=== PATIENT | male | born 1995 | race Caucasian/White ===

== ENCOUNTER 2018-12-28 18:33 | Emergency (ER) | payer BC, SELFPAY ==
[2018-12-28 18:34] VITALS: BP 143/78; PULSE 77; RESP 16; TEMP 36.8; O2SAT 96; BMI 36.1
--- NOTE | 2018-12-28 18:55 | RAD_ITS ---
STUDY: X-RAY - RIGHT HAND, ATTENTION THIRD FINGER REASON FOR EXAM: Male, 23 years old. Trauma TECHNIQUE: 3 view(s) of the finger were obtained. COMPARISON: None. FINDINGS: Normal metacarpal head. Normal metacarpophalangeal joint. Normal proximal phalanx. Normal middle phalanx. Transverse fracture through the distal phalangeal tuft of the third digit with mild separation of fracture fragments Normal proximal interphalangeal joint. Normal distal interphalangeal joint. RAD/Finger(s) Min 2 Views IMPRESSION: Mildly displaced fracture through the distal phalanx of the third digit Electronically Signed: Nino De La Cruz MD at 19:09 EDT , Service support ,
--- NOTE | 2018-12-28 20:35 | ED.VISSUMM ---
- ER Visit Summary Date of Service: 12/28/18 Chief Complaint: Right long finger injury History of Present Illness: The patient is a 23 M who presents with an injury to his right long finger that occurred yesterday. Patient states he smashed in a car door. Patient states the pain is worse with any movement. Patient does admit to some tingling in the tip of his finger. Patient describes his pain as throbbing. Patient states pain is improving over the past 24 hours. Patient is unsure of his last tetanus but thinks it was approximately 10 years ago. Physical Examination: Vital signs are stable. Patient is afebrile. Patient is in no acute distress. Musculoskeletal exam reveals laceration over the volar aspect of the distal phalanx of the right long finger. There is also a subungual hematoma on the right long finger that is less than 50% of the nailbed. There is tenderness to palpation over the distal phalanx of the right long finger. Range of motion was slightly limited in flexion of the DIP joint of the right long finger. Sensation was intact to light touch in all digits. Capillary refill is less than 2 seconds in all digits. Test Results: X-rays of the right middle finger were obtained. There is a transverse fracture through the distal phalanx that is minimally displaced. Emergency Department Course and Treatment: Patient was given a tetanus booster. Patient was given a dose of Keflex here. Bacitracin gauze dressing was applied. AlumaFoam splint was applied. Patient was given a prescription for Keflex. Patient was instructed to ice and elevate the right middle finger. Patient was instructed to follow-up with his primary care physician in 5 to 7 days. Patient understood and was agreeable with the plan. All questions were answered. Disposition: Discharge home Impression: 1. Open fracture distal phalanx right long finger This note was generated with [employer] dictation software. It may contain incorrect words, spelling, and punctuation that were not noted in review of the chart prior to signing ED Disposition - Plan for ED Patient: Disposition: Home or Assisted Living Diagnosis: Open fracture of distal phalanx of digit of right hand Instructions: FRACTURE, Finger (Open) Prescriptions: Cephalexin [Keflex] 500 mg PO Q6 #40 cap Prescription Printed Referrals: Aime Conte III, MD [Primary Care Provider] - 5-7 Days
[2018-12-28] MEDS: Cephalexin 500 MG Capsule PO (20:50)
[2018-12-28] MEDS: Diphth,Pertuss(Acell),Tet Vac 0.5 ML Vial IM (20:50)
[2018-12-28] MEDS: BACITRACIN 15 GM Tube 1 APPLIC TOPICAL (20:50)
[2018-12-28 21:08] VITALS: BP 136/70; PULSE 72; RESP 16; O2SAT 100
== END 2018-12-28 21:09 | disposition home or self-care (01) ==
PROVIDERS: Emergency Provider Emergency Medicine; Family Provider Family Medicine; PCP Family Medicine
DX: S62.632B Displaced fracture of distal phalanx of right middle finger, initial encounter for open fracture (principal); W23.0XXA Caught, crushed, jammed, or pinched between moving objects, initial encounter
CPT/HCPCS: 73140; 90471; 90715; 99284

== ENCOUNTER 2021-04-07 19:19 | Emergency (ER) | payer OTHER, SELFPAY ==
[2021-04-07 19:20] VITALS: BP 143/76; PULSE 117; RESP 22; TEMP 37.8; O2SAT 93; BMI 35.2
--- NOTE | 2021-04-07 19:26 | RAD_ITS ---
STUDY: X-RAY CHEST REASON FOR EXAM: Male, 26 years old. SOB -- COVID + shortness of breath since Monday TECHNIQUE: Frontal portable view of the chest COMPARISON: None. FINDINGS: There is ill-defined interstitial moderate extent right lower lung opacity with smaller left lower lobe opacity. Pulmonary volumes are low. There is no pneumothorax, pulmonary edema or cardiac megaly. RAD/Chest 1 View IMPRESSION: Bilateral viral pneumonia. Electronically Signed: Yair Zelaya MD at 20:13 EST Tel , Service support ,
[2021-04-07 22:04] VITALS: O2SAT 96
--- NOTE | 2021-04-07 22:15 | EDS_ITS ---
HPI HPI - URI History of Present Illness Chief Complaint: Shortness of Breath Narrative Narrative: 26-year-old male on day 7 of Covid symptoms. Patient still having fever, chills, body aches. He has not been monitoring his pulse ox because he does not know how. Patient does describe a cough as well and when he coughs it is painful. Patient is taking Tylenol for his fevers. Patient states he has a la in his leg. He developed a DVT postoperatively in the past. He has never had a PE. Patient is not on oral anticoagulation currently. ROS ROS ED Constitutional Constitutional ED: Reports chills and fever(s) Eyes Eyes: Denies blurry vision or diplopia ENT ENT ED: Reports rhinorrhea Cardiovascular Cardiovascular: Reports chest pain; Denies palpitations or racing heartbeat Respiratory/Chest Respiratory/Chest: Reports cough and dyspnea; Denies sputum Gastrointestinal Gastrointestinal: Denies abdominal pain, nausea or vomiting Genitourinary Genitourinary ED: Denies dysuria or hematuria Musculoskeletal Musculoskeletal: Reports myalgias Integumentary Denies abscess or rash Neurologic Neurologic: Reports headache(s); Denies paresthesias or weakness Psychiatric Psychiatric: Denies anxiety or depression PFSH PFSH Medical History no medical history Home Medications cephalexin 500 mg PO Q6 #40 cap 12/28/18 [Rx Last Taken Unknown] albuterol sulfate [Ventolin HFA] 2 puff INHALATION Q6H #8.5 g 04/07/21 [Rx Last Taken Unknown] ondansetron 4 mg PO Q8H PRN PRN #20 tab 04/07/21 [Rx Last Taken Unknown] Allergy/AdvReac Type Severity Reaction Status Date / Time acetaminophen [From Vicodin] Allergy Other Verified 04/07/21 19:19 hydrocodone [From Vicodin] Allergy Other Verified 04/07/21 19:19 propoxyphene Allergy Other Verified 04/07/21 19:19 [From Darvocet-N] Surgical History no surgical history Social History Smoking Status: Never smoker EXAM Physical Exam Const Vital Signs: 04/07/21 19:20 04/07/21 22:04 04/07/21 22:47 Temperature 100.1 F H Temperature Source Temporal Pulse Rate 117 H Respiratory Rate 22 H Respiratory Effort Short of Breath Respiratory Depth Normal Respiratory Pattern Tachypnea Blood Pressure 143/76 H Blood Pressure Mean 98 Pulse Ox 93 95 Oxygen Delivery Method Room Air Room Air Room Air 04/08/21 00:04 Temperature Temperature Source Pulse Rate 62 Respiratory Rate 15 Respiratory Effort Respiratory Depth Respiratory Pattern Blood Pressure 124/77 H Blood Pressure Mean Pulse Ox 95 Oxygen Delivery Method Positive well nourished General Appearance ED: NAD; Negative for pallor HEENT Reports moist mucous membranes normocephalic Eyes PERRL and EOMs intact bilaterally Neck supple and no meningeal signs Resp normal respiratory effort and clear to auscultation bilaterally Auscultation: rales bilateral Cardio Rate: tachycardic Rhythm: regular rhythm GI non-tender and non-distended Palpation: soft Neuro oriented x3, CN's II-XII intact bilaterally and no sensory deficits noted Sensorium / Orientation: alert Motor Exam: strength 5/5 throughout Psych mental status grossly normal Skin General Skin Exam: Negative for jaundice or pallor MDM MDM MDM Narrative Medical decision making narrative: Patient presenting on day 7 of Covid symptoms. He is febrile. He is given Tylenol, morphine, Zofran. Given his symptoms I did check blood work as he is having some chest discomfort. This appears to be more of coughing discomfort more than cardiac related chest pain or PE. I did obtain a CBC which shows leukopenia and lymphopenia. Hemoglobin medic are stable. Creatinine is slightly elevated 1.34. Electrolytes are normal. AST is slightly elevated at 95 otherwise LFTs are normal. Troponin is 15. I did retest him for COVID-19 as he had done home test and I wanted to try to get him follow-up for monoclonal antibodies. EKG on my interpretation shows a sinus rhythm at 88 bpm without signs of ischemic change. Chest x-ray on my interpretation shows bilateral pulmonary infiltrates. Radiologist does agree. CTA of the chest does not identify any pulmonary emboli but does show bilateral groundglass infiltrates. This would be consistent with diagnosis of COVID-19. Reviewed vital signs patient's blood pressure is 124/77 pulse 62, respirate 15, pulse ox 95% on room air. I feel patient is stable for discharge home. He is given Zofran for any nausea. He is counseled to drink plenty of fluids. He will follow-up for monoclonal antibodies. Is given return precautions for the ER. Impression: 1. COVID-19 pneumonitis Lab Data Attestation: I reviewed the patient's lab results. Labs: Laboratory Results - last 24 hr 04/07/21 04/07/21 04/07/21 22:29 22:34 22:34 WBC 3.9 L RBC 5.10 Hgb 15.3 Hct 43.1 MCV 84.5 MCH 30.0 MCHC 35.5 RDW Std Deviation 39.3 RDW Coeff of Yasmeen 12.7 Plt Count 140 L MPV 12.2 H Immature Gran % (Auto) 0.800 Neut % (Auto) 71.3 H Lymph % (Auto) 21.1 [place] % (Auto) 6.2 Eos % (Auto) 0.3 Baso % (Auto) 0.3 Absolute Neuts (auto) 2.8 Absolute Lymphs (auto) 0.82 L Nucleated RBC % 0 Sodium 135 L Potassium 3.6 Chloride 105 Carbon Dioxide 22.0 Anion Gap 8 BUN 18 Creatinine 1.34 H Estim Creat Clear Calc 90.08 Est GFR (MDRD) Af Amer 82 Est GFR (MDRD) Non-Af 67 BUN/Creatinine Ratio 13.4 Glucose 80 Calcium 8.2 L Total Bilirubin 0.60 AST 95 H ALT 52 Alkaline Phosphatase 85 Troponin I High Sens 15 Total Protein 7.5 Albumin 3.5 Globulin 4.0 Albumin/Globulin Ratio 0.9 COVID-19 (JAROCHO) Positive Radiography Diagnostic Testing: Clinical Impression(s) from Imaging Studies Chest X-Ray 04/07/21 19:26 IMPRESSION: Bilateral viral pneumonia. Electronically Signed: Yair Zelaya MD at 20:13 EST Tel , Service support , Chest CTA 04/07/21 22:23 IMPRESSION: 1. No pulmonary emboli. 2. No aortic dissection or aneurysm. 3. Groundglass infiltrates in the posterior lung bases. Question COVID pneumonia. 4. Hepatic steatosis. 5. Question splenomegaly. Electronically Signed: Nawaf Hill DO at 23:38 EST Tel [phone], Service support , Discharge Plan Triage Chief Complaint: Shortness of Breath ED Provider: Rajinder Al Dx/Rx/DC Orders Instructions: Coronavirus Disease 2019 (COVID-19): Caring for Yourself or Others Prescriptions: New ondansetron 4 mg tablet,disintegrating 4 mg PO Q8H PRN PRN (Reason: Nausea) Qty: 20 RF: 0 albuterol sulfate [Ventolin HFA] 90 mcg/actuation HFA aerosol inhaler 2 puff inhalation Q6H Qty: 8.5 RF: 0 No Action cephalexin 500 MG capsule 500 mg PO Q6 Qty: 40 RF: 0 Other Ambulatory Orders: COVID Outpatient Monoclonal Antibody Referral (Routine) Timeframe: 1 Day Facility: [facility] - Location: [facility] Ordered By: Dr. Rajinder Al Primary Care Provider: Care Physician,No Primary Referrals: Lavelle Ross MD [STAFF PHYSICIAN] - As soon as possible Care Physician,No Primary [Primary Care Provider] - Disposition Disposition: Home, Self Care Discharge Date/Time: 04/08/21 00:08
--- NOTE | 2021-04-07 22:22 | EKG12_ITS ---
Test Reason : SOB Blood Pressure : / mmHG Vent. Rate : 088 BPM Atrial Rate : 088 BPM P-R Int : 152 ms QRS Dur : 084 ms QT Int : 360 ms P-R-T Axes : 003 009 009 degrees QTc Int : 435 ms Normal sinus rhythm Normal ECG Confirmed by ARLETTE BURCIAGA, DREW ([id number]), makeup editor MARGIE SANDOVAL ([id number]) on 04/09/2021 9:29:32 A M Referred By: BENEDICTO Confirmed By:JARRED CHONG MD
--- NOTE | 2021-04-07 22:23 | CT_ITS ---
STUDY: CTA CHEST REASON FOR EXAM: Male, 26 years old. Chest pain. Code GRACE x7 days. Cough fever chills and body aches. RADIATION DOSAGE (If Supplied By Facility): CTDIvol = ( 13.85 ) mGy, DLP = ( 568.35 ) mGycm TECHNIQUE: The examination was performed with the intravenous administration of IV 100mL Isovue-370. Post-processing of the angiographic images was performed, with multiplanar reformation and 3D reconstruction. Individualized dose optimization techniques were used for this CT. COMPARISON: Chest, 04/07/2021. FINDINGS: Normal enhancement of the main pulmonary artery and right and left pulmonary arteries. Normal enhancement of the bilateral peripheral pulmonary arteries. There is no demonstrated pulmonary embolism. Normal thoracic aorta and visualized great vessels. There is no demonstrated aortic dissection. Normal heart and pericardium. Normal mediastinum. Normal hilar regions. Normal visualized trachea and bronchi. The lungs are well expanded. There is patchy ground glass infiltrates posteriorly at both lung bases. The lungs are otherwise clear. Normal pleura. Normal chest wall structures. Normal osseous structures. Fatty infiltration of the liver. Mild splenomegaly is suspected. CT/CTA Chest W/WO Contrast IMPRESSION: 1. No pulmonary emboli. 2. No aortic dissection or aneurysm. 3. Groundglass infiltrates in the posterior lung bases. Question COVID pneumonia. 4. Hepatic steatosis. 5. Question splenomegaly. Electronically Signed: Nawaf Hill DO at 23:38 EST Tel [phone], Service support ,
[2021-04-07 22:47] VITALS: O2SAT 95
[2021-04-07] MEDS: Ketorolac 15 MG/ML Vial IV (22:48)
[2021-04-07] MEDS: Morphine 4 MG/ML Syringe IV (22:48)
[2021-04-07] MEDS: Ondansetron 4 MG/2 ML Vial IV (22:48)
[2021-04-07 23:04] LABS: Absolute Lymphocyte Count 0.82 X10^3/uL (0.83-4.51); Absolute Neutrophil Count 2.8 X10^3/uL (2.0-7.7); Basophil# 0.01 X10^3/uL; Basophil% 0.3 % (0-1); Eosinophil# 0.01 X10^3/uL; Eosinophils% 0.3 % (0-5); Hematocrit 43.1 % (40-54); Hemoglobin 15.3 g/dL (13.0-16.5); Lymphocyte # 0.82 X10^3/ul (0.83-4.51); Lymphocyte % 21.1 % (19-41); Mean Corp Hgb Conc 35.5 g/dL (32-36); Mean Corpuscular Volume 84.5 fL (80-94); Mean Platelet Vol. 12.2 fl (6.2-12.0); Monocyte# 0.24 X10^3/uL; Monocyte% 6.2 % (0-10); NRBC Flagged by Analyzer 0 % (0-5); Neutrophil # 2.78 X10^3/uL (2.7-7.7); Neutrophil % 71.3 % (47-70); Platelet Count 140 K/mm3 (150-450); RBC Distribution Width CV 12.7 % (11.6-14.6); RBC Distribution Width SD 39.3 fl (35.1-43.9); White Blood Count 3.9 K/mm3 (4.4-11.0)
[2021-04-07 23:14] LABS: ALB/GLOB Ratio 0.9 RATIO (0.9-2.4); AST(SGOT) 95 U/L (15-37); Alanine Aminotransfer ALT/SGPT 52 U/L (16-61); Albumin, Serum 3.5 g/dL (3.2-5.0); Alkaline Phosphatase 85 U/L (45-117); Anion Gap 8 (5-15); BUN 18 mg/dL (7-18); BUN/Creat Ratio 13.4 RATIO (10-20); Calcium,Total 8.2 mg/dL (8.5-10.1); Chloride 105 mmol/L (98-107); Creatinine, Serum 1.34 mg/dL (0.70-1.30); EST Glomerular Filtration Rate 67 mL/min (>60); Est Glom Filt Rate - Afr Amer 82 mL/min (>60); Estimated Creatinine Clearance 90.08 ml/min; Glucose 80 mg/dL (74-106); Potassium 3.6 mmol/L (3.5-5.1); Protein, Total 7.5 g/dL (6.4-8.2); Sodium Level 135 mmol/L (136-145); Troponin-I HS 15 pg/mL (3.0-78.0)
[2021-04-07 23:46] LABS: Probe Check PASS; Specimen Processing Control PASS
[2021-04-08 00:04] VITALS: BP 124/77; PULSE 62; RESP 15; O2SAT 95
== END 2021-04-08 00:08 | disposition home or self-care (01) ==
PROVIDERS: Emergency Provider Student in an Organized Health Care Education/Training Program
DX: U07.1 COVID-19 (principal); J12.82 Pneumonia due to coronavirus disease 2019; K76.0 Fatty (change of) liver, not elsewhere classified; Z79.899 Other long term (current) drug therapy; Z86.718 Personal history of other venous thrombosis and embolism
CPT/HCPCS: 71045; 71275; 80053; 84484; 85025; 87635; 93005; 96374; 96375; 99285; Q9967; U0005; A4216; J2405; U0003

== ENCOUNTER 2021-04-09 16:55 | Outpatient (CLI) | payer OTHER, SELFPAY ==
[2021-04-09 17:02] VITALS: PULSE 88; RESP 20; TEMP 36.9; O2SAT 94; BMI 34.5
[2021-04-09] MEDS: 0.9% Saline Lock 10 ML Syringe IV (17:11)
[2021-04-09 18:10] VITALS: BP 128/67; PULSE 76; RESP 18; TEMP 36.7; O2SAT 95
[2021-04-09 19:08] VITALS: BP 116/61; PULSE 79; RESP 18; TEMP 36.8; O2SAT 95
== END 2021-04-09 19:25 | disposition home or self-care (01) ==
LOC: MS3OUT 16:55 → MS3 16:56
PROVIDERS: Referring Provider Nurse Practitioner Adult Health; Visit Provider Nurse Practitioner Adult Health
DX: Z23 Encounter for immunization (principal); U07.1 COVID-19
CPT/HCPCS: J7050; M0245; Q0245; A4216